=== PATIENT | female | born 1990 | race Caucasian/White ===

== ENCOUNTER 2019-12-02 06:17 | Inpatient (IN) ==
[2019-12-02] MEDS: Ringers Solution, Lactated 1,000 ML IVC SCH ×2 (06:07→07:58)
[~2019-12-02 06:17] MED LIST: *HR* FentaNYL (PF) 100 MCG/2 ML VIAL IVP PRN; Famotidine 20 MG/2 ML VIAL IVP PRN; Metoclopramide 10 MG/2 ML VIAL IVP PRN; Naloxone 0.4 MG/ML INJ IVP PRN; Ondansetron 4 MG/2 ML VIAL IVP PRN; Ringers Solution, Lactated 1,000 ML ONE
[2019-12-02] MEDS ORDERED: Penicillin G Potassium 5,000,000 UNIT in 0.9 % Sodium Chloride Mini Bag 100 ML IVPB ONE (06:20)
[2019-12-02 06:33] LABS: Basophils % 0.3 %; Eosinophils # 0.2 K/mcL (0.0-0.6); Eosinophils % 1.3 %; Hematocrit 39.7 % (35.3-44.9); Hemoglobin 12.5 g/dL (11.5-15.4); Immature Granulocytes % 0.5 % (0-4); Lymphocytes # 2.6 K/mcL (0.6-4.6); Lymphocytes % 22.2 %; Mean Corpuscular HGB Conc 31.5 g/dL (31.6-35.5); Mean Corpuscular Volume 82.5 fL (83.0-100.0); Mean Platelet Volume 10.2 fL (9.4-12.4); Monocytes # 0.8 K/mcL (0.0-1.3); Monocytes % 7.2 %; Platelet Count 304 K/mcL (140-400); Red Blood Count 4.81 M/mcL (3.82-4.97); Red Cell Distribution Width 17.5 % (11.5-14.5); Segmented Neutrophils % 68.5 %; White Blood Count 11.7 K/mcL (4.3-11.1)
[2019-12-02 06:49] LABS: Amphetamine Screen,Urine Negative ng/mL (Cutoff=1000); Barbiturate Screen,Urine Negative ng/mL (Cutoff=200)
[2019-12-02 06:50] LABS: Benzodiazepines Screen,Urine Negative ng/mL (Cutoff=300); Cannabinoid Screen,Urine Negative ng/mL (Cutoff = 50); Cocaine Screen,Urine Negative ng/mL (Cutoff= 300); Opiate Screen,Urine Negative ng/mL (Cutoff=300); Phencyclidine Screen,Urine Negative ng/mL (Cutoff=25)
[2019-12-02] MEDS ORDERED: EPHEDrine 50 MG/ML VIAL IVP PRN (07:25)
[2019-12-02] MEDS ORDERED: Epidural Premix (fent/bupiv) 110 ML EP SCH (07:30)
[2019-12-02] MEDS ORDERED: Penicillin G Potassium 2,500,000 UNIT in 0.9 % Sodium Chloride 100 ML IVPB SCH (08:00)
[2019-12-02] MEDS ORDERED: *HR* Phenylephrine 10 MG/ML VIAL ONE (08:11)
[2019-12-02] MEDS ORDERED: Lidocaine/EPI 1:200k 2% PF 20 ML VIAL ONE (08:17)
[2019-12-02] MEDS ORDERED: Sodium Bicarbonate 50 MEQ/50 ML VIAL ONE (08:17)
[2019-12-02] MEDS ORDERED: *HR* Succinylcholine 200 MG/10 ML VIAL IVP ONE (08:21)
[2019-12-02] MEDS ORDERED: *HR* Midazolam HCl 2 MG/2 ML VIAL ONE (08:28)
[2019-12-02] MEDS ORDERED: *HR* Oxytocin 10 UNIT/ML VIAL IM ONE ×2 (08:30)
[2019-12-02] MEDS ORDERED: Ringers Solution, Lactated 1,000 ML ONE (08:32)
[2019-12-02] MEDS ORDERED: Ketorolac 30 MG/ML VIAL ONE (08:38)
[2019-12-02] MEDS ORDERED: Dexamethasone 4 MG/ML VIAL ONE (08:39)
[2019-12-02] MEDS ORDERED: Acetaminophen IV 1,000 MG/100 ML INFUS..BTL ONE (08:39)
[2019-12-02] MEDS ORDERED: Ondansetron 4 MG/2 ML VIAL ONE (08:39)
[2019-12-02] MEDS ORDERED: *HR* Morphine Sulfate/PF 10 MG/10 ML AMPUL ONE (08:47)
[2019-12-02] MEDS ORDERED: Ibuprofen 600 MG TABLET PO PRN (12:56)
[2019-12-02] MEDS ORDERED: Oxytocin 20 units/ LR 1000 mL 20 UNIT/1,000 ML BAG IVC SCH (12:56)
[2019-12-02] MEDS ORDERED: *HR* OxyCODONE/APAP 10/325 TABLET PO PRN (12:56)
[2019-12-02] MEDS ORDERED: Sennosides 8.6 MG TABLET PO PRN (12:56)
[2019-12-02] MEDS ORDERED: Metoclopramide 10 MG/2 ML VIAL IVP PRN (12:56)
[2019-12-02] MEDS ORDERED: Ondansetron 4 MG/2 ML VIAL IVP PRN (12:56)
[2019-12-02] MEDS ORDERED: Simethicone 80 MG TAB.CHEW PO PRN (12:56)
[2019-12-02] MEDS ORDERED: 0.9 % Sodium Chloride 1,000 ML IVC SCH (12:56)
[2019-12-02] MEDS ORDERED: *HR* OxyCODONE/APAP 5/325 TABLET PO PRN (12:56)
[2019-12-02] MEDS: ceFAZolin 2,000 MG in 0.9 % Sodium Chloride 100 ML IVPB SCH (19:30)
[2019-12-03] MEDS: ceFAZolin 2,000 MG in 0.9 % Sodium Chloride 100 ML IVPB SCH ×2 (00:01→08:18)
[2019-12-03 03:53] LABS: Basophils % 0.1 %; Eosinophils % 0.1 %; Hematocrit 34.1 % (35.3-44.9); Immature Granulocytes % 0.4 % (0-4); Lymphocytes % 14.3 %; Mean Corpuscular Hemoglobin 26.4 pg (28.0-33.3); Mean Corpuscular Volume 82.6 fL (83.0-100.0); Mean Platelet Volume 10.9 fL (9.4-12.4); Monocytes # 0.9 K/mcL (0.0-1.3); Monocytes % 6.5 %; Neutrophils # 10.9 K/mcL (1.6-8.9); Platelet Count 283 K/mcL (140-400); Red Blood Count 4.13 M/mcL (3.82-4.97); Red Cell Distribution Width 17.3 % (11.5-14.5); Segmented Neutrophils % 78.6 %; White Blood Count 13.9 K/mcL (4.3-11.1)
[2019-12-03 03:54] LABS: Hemoglobin 10.9 g/dL (11.5-15.4)
[2019-12-03 07:50] VITALS: BP 121/81
[2019-12-03] MEDS: Prenatal Vit/FA 1 EACH TABLET PO SCH (08:16)
== END 2019-12-03 11:35 | disposition home or self-care (01) | DRG 540 ==
LOC: 1NENULAB → 1NENUOBS 11:25
PROVIDERS: ADMIT Student in an Organized Health Care Education/Training Program; ATTEND Student in an Organized Health Care Education/Training Program

== ENCOUNTER 2020-05-09 06:19 | Observation (INO) ==
[2020-05-09] MEDS ORDERED: *HR* FentaNYL (PF) 100 MCG/2 ML VIAL IVP ONE (06:51)
[2020-05-09] MEDS ORDERED: 0.9 % Sodium Chloride 1,000 ML IV ONE (06:52)
[2020-05-09] MEDS ORDERED: Ondansetron 4 MG/2 ML VIAL IVP ONE (06:53)
[2020-05-09 07:31] LABS: Bacteria,Urine Few per hpf (None-Few); Mucus,Urine Few per lpf (None-Few); RBC,Urine 0-3 per hpf (0-3); Squamous Epithelial Cell,Urine Moderate per hpf (None-Few); WBC,Urine 0-3 per hpf (0-3)
[2020-05-09 07:33] LABS: Alanine Aminotransferase 190 Units/L (7-52); Albumin 4.1 g/dL (3.5-5.7); Albumin/Globulin Ratio 1.3 (1.1-2.2); Alkaline Phosphatase 203 Units/L (34-104); Amylase 32 Units/L (29-103); Aspartate Amino Transferase 294 Units/L (13-39); BUN/Creatinine Ratio 25 (6-26); Bilirubin,Direct 0.4 mg/dL (0.0-0.2); Bilirubin,Indirect 0.5 mg/dL (0.0-1.0); Bilirubin,Total 0.9 mg/dL (0.3-1.0); Blood Urea Nitrogen 13 mg/dL (6-20); Calcium 9.2 mg/dL (8.6-10.3); Carbon Dioxide 24 mEq/L (23-29); Chloride 104 mEq/L (98-107); Globulin 3.2 g/dL (2.4-3.5); Glucose 122 mg/dL (70-105); Lipase 16 Units/L (11-82); Osmolality,Calculated 285 (280-300); Sodium 137 mEq/L (136-145); Total Protein 7.3 g/dL (6.4-8.9); eGFR For African Americans > 60 (> 60); eGFR For Non-African Americans > 60 (> 60)
[2020-05-09 08:16] LABS: Bilirubin,Urine Negative (Negative); Blood,Urine Negative (Negative); Clarity,Urine Clear (Clear); Color,Urine Yellow (Yellow); Glucose,Urine (UA) 100 mg/dL (Normal); Ketones,Urine Negative (Negative); Leukocyte Esterase,Urine Negative (Negative); Nitrite,Urine Negative (Negative); PH,Urine 6.5 pH Units (5.0-8.0); Protein,Urine Trace mg/dL (Neg-Trace); Specific Gravity,Urine > 1.030 (1.010-1.025)
[2020-05-09 08:36] LABS: Basophils % 0.3 %; Eosinophils # 0.1 K/mcL (0.0-0.6); Eosinophils % 0.9 %; Hematocrit 39.4 % (35.3-44.9); Hemoglobin 12.4 g/dL (11.5-15.4); Immature Granulocytes % 0.4 % (0-4); Lymphocytes # 1.5 K/mcL (0.6-4.6); Lymphocytes % 19.7 %; Mean Corpuscular HGB Conc 31.5 g/dL (31.6-35.5); Mean Corpuscular Hemoglobin 27.6 pg (28.0-33.3); Mean Corpuscular Volume 87.8 fL (83.0-100.0); Mean Platelet Volume 9.2 fL (9.4-12.4); Monocytes # 0.6 K/mcL (0.0-1.3); Monocytes % 8.2 %; Neutrophils # 5.5 K/mcL (1.6-8.9); Platelet Count 285 K/mcL (140-400); Red Blood Count 4.49 M/mcL (3.82-4.97); Red Cell Distribution Width 13.7 % (11.5-14.5); Segmented Neutrophils % 70.5 %; White Blood Count 7.7 K/mcL (4.3-11.1)
[2020-05-09] MEDS ORDERED: Piperacillin/Tazobactam 3.375 GM in 0.9 % Sodium Chloride Mini Bag 100 ML IVPB SCH (09:03)
[2020-05-09] MEDS ORDERED: *HR* Promethazine 25 MG/ML VIAL IVP PRN ×2 (09:12→15:46)
[2020-05-09] MEDS ORDERED: Ringers Solution, Lactated 1,000 ML IVC ONE ×2 (09:14→15:46)
[2020-05-09] MEDS ORDERED: *HR* OxyCODONE Immed Rel 5 MG TABLET PO PRN ×2 (09:14→15:46)
[2020-05-09] MEDS ORDERED: Isovue-300 50ML VIAL ONE (09:54)
[2020-05-09] MEDS ORDERED: CefOXitin 1,000 MG VIAL ONE (09:55)
[2020-05-09] MEDS ORDERED: CefOXitin 2,000 MG VIAL ONE (09:55)
[2020-05-09] MEDS ORDERED: cefOXitin 1,000 MG, 0.9 % Sodium Chloride 1,000 ML IR ONE (10:00)
[2020-05-09] MEDS ORDERED: *HR* FentaNYL (PF) 100 MCG/2 ML VIAL ONE (10:08)
[2020-05-09] MEDS ORDERED: Ondansetron 4 MG/2 ML VIAL ONE (10:08)
[2020-05-09] MEDS ORDERED: Lidocaine -MPF 2% 2 ML VIAL ONE ×2 (10:08)
[2020-05-09] MEDS ORDERED: *HR* Propofol 200 MG/20 ML VIAL IVP ONE (10:08)
[2020-05-09] MEDS ORDERED: *HR* Midazolam HCl 2 MG/2 ML VIAL ONE (10:08)
[2020-05-09] MEDS ORDERED: Lidocaine -MPF 4% 5 ML AMPUL ONE (10:55)
[2020-05-09] MEDS ORDERED: *HR* Succinylcholine 200 MG/10 ML VIAL IVP ONE (10:57)
[2020-05-09] MEDS ORDERED: *HR* Rocuronium Bromide 50 MG/5 ML VIAL ONE (10:57)
[2020-05-09 11:50] LABS: Adenovirus Not Detected (Not Detect); Bordetella Pertussis Not Detected (Not Detect); Chlamydophila pneumoniae Not Detected (Not Detect); Coronavirus 229E Not Detected (Not Detect); Coronavirus HKU1 Not Detected (Not Detect); Coronavirus NL63 Not Detected (Not Detect); Coronavirus OC43 Not Detected (Not Detect); Human Metapneumovirus Not Detected (Not Detect); Human Rhinovirus/Enterovirus Not Detected (Not Detect); Influenza A Subtype 2009 H1 Not Detected (Not Detect); Influenza B Not Detected (Not Detect); Mycoplasma pneumoniae Not Detected (Not Detect); Parainfluenza Virus 1 Not Detected (Not Detect); Parainfluenza Virus 2 Not Detected (Not Detect); Parainfluenza Virus 3 Not Detected (Not Detect); Parainfluenza Virus 4 Not Detected (Not Detect); Respiratory Syncytial Virus Not Detected (Not Detect); SARS-CoV-2 Not Detected (Not Detect)
[2020-05-09] MEDS ORDERED: Dexamethasone 4 MG/ML VIAL ONE (13:13)
[2020-05-09] MEDS ORDERED: Acetaminophen IV 1,000 MG/100 ML INFUS..BTL ONE (13:15)
[2020-05-09] MEDS ORDERED: Ketorolac 30 MG/ML VIAL ONE (13:36)
[2020-05-09] MEDS: *HR* HYDROmorphone PF 0.5 MG/0.5 ML SYRINGE IVP PRN ×2 (14:14→14:20)
[2020-05-09 16:23] VITALS: BP 118/88
[2020-05-10] MEDS ORDERED: *HR* Enoxaparin 40 MG/0.4 ML SYRINGE SQ SCH (06:00)
== END 2020-05-09 17:11 | disposition home or self-care (01) ==
LOC: 3BNU 06:19 → EMEROOARM 06:19 → 3BNU 14:08
PROVIDERS: ADMIT Internal Medicine; ATTEND Internal Medicine